=== PATIENT | male | born 1950 | race Caucasian/White ===

== ENCOUNTER 2024-09-22 09:44 | Emergency (ER) | payer MEDICARE, OTHER ==
[~2024-09-22] VITALS: Ht 193 cm; Wt 184.2 kg
[~2024-09-22 09:44] MED LIST: BACDST PO; CEPH500C PO
[2024-09-22 10:21] VITALS: BP 163/88; PULSE 88; RESP 17; TEMP 98.8; O2SAT 96
--- NOTE | 2024-09-22 10:31 | ED.PDOC ---
Musculoskeletal HPI Comments A 73 YEAR OLD MALE PRESENTS TO THE ED WITH COMPLAINT OF LEFT KNEE PAIN. PATIENT STATES HE HAS BEEN EXPERIENCING LEFT KNEE PAIN THAT IS WORSE WITH MOVEMENT FOR THE PAST 2 WEEKS. PATIENT DENIES INJURY TO THE AFFECTED AREA, FEVER, CHILLS, SHORTNESS OF BREATH, CHEST PAIN, ABDOMINAL PAIN, NAUSEA, VOMITING, HEADACHE, OR OTHER COMPLAINTS. NO OTHER SYMPTOMS OR MODIFYING FACTORS AT THIS TIME. PATIENT IS ALERT, ORIENTED X 4, AND HAS STEADY GAIT. Chief Complaint: Lower Extremity Time Seen by MD: 10:02 Primary Care Provider: UNKNOWN Reviewed Notes: Nurses Notes, Medications, Allergies Allergies: Coded Allergies: NO KNOWN ALLERGIES (Unverified , 05/22/23) Home Meds Active Scripts Prednisone (Prednisone) 20 Mg Tab, 60 MG PO DAILY, #21 TAB Prov:ROSSY MARCELINO 09/22/24 Hydrocodone-Acetaminophen (Hydrocodone Bitartrate/AC 10-325 mg) 1 Tab Tab, 1 TAB PO BID, #14 TAB Prov:ROSSY MARCELINO 09/22/24 Sulfamethoxazole W/Trimethopri (Bactrim Ds Tablet) 1 Tab Tb, 1 TAB PO BID for 7 Days, #14 TAB 0 Refills Prov:LEONIDAS VINES THEATER USHER 05/22/23 Cephalexin Monohydrate (Cephalexin) 500 Mg Cap, 500 MG PO QID for 5 Days, #20 CAP 0 Refills Prov:LEONIDAS VINES THEATER USHER 05/22/23 Information Source: Patient Mode of Arrival: Ambulatory Location: Left Extremity Location: Knee Timing: Weeks Prehospital treatment: None Severity: Moderate Able to Move Extremity: Yes Bear Weight: Fully Pain: Moderate Mechanism: No Trauma, Spontaneous Circumstances: Spontaneous Onset of Symptoms: Spontaneous Symptoms: Pain DVT Risk Factors: NONE Last Tetanus: Unknown Associated signs and symptoms: Knee pain Past Medical History PAST MEDICAL HISTORY: Denies Past Medical History (Other): CELLULITIS OF RIGHT LOWER LEG Surgical History (Other): BILATERAL FEMUR SURGERY Family History Family History: Reviewed,noncontributory to illness Social History Smoker: Non-Smoker Alcohol: Denies ETOH Use Drugs: Denies Drug Use Lives In: Home Constitutional: denies: chills, diaphoresis, fatigue, fever, malaise, sweats, weakness, others EENTM: denies: blurred vision, double vision, ear bleeding, ear discharge, ear drainage, ear pain, ear ringing, eye pain, eye redness, hearing loss, mouth pain, mouth swelling, nasal discharge, nose bleeding, nose congestion, nose pain, photophobia, tearing, throat pain, throat swelling, voice changes, others Respiratory: denies: cough, hemoptysis, orthopnea, SOB at rest, shortness of breath, SOB with excertion, stridor, wheezing, others Cardiovascular: denies: chest pain, dizzy spells, diaphoresis, Dyspnea on exertion, edema, irregular heart beat, left arm pain, lightheadedness, palpitations, PND, syncope, others Gastrointestinal: denies: abdomen distended, abdominal pain, blood streaked bowels, constipated, diarrhea, dysphagia, difficulty swallowing, hematemesis, melena, nausea, poor appetite, poor fluid intake, rectal bleeding, rectal pain, vomiting, others Genitourinary: denies: burning, dysuria, flank pain, frequency, hematuria, incontinence, penile discharge, penile sore, pain, testicle pain, testicle swelling, urgency, others Neurological: denies: dizziness, fainting, headache, left sided numbness, left sided weakness, numbness, paresthesia, pre-existing deficit, right sided numbness, right sided weakness, seizure, speech problems, tingling, tremors, weakness, others Musculoskeletal: reports: joint pain, others (LEFT KNEE PAIN); denies: back pain, gout, joint swelling, muscle pain, muscle stiffness, neck pain Integumetry: denies: bruises, change in color, change in hair/nails, dryness, laceration, lesions, lumps, rash, wounds, others Allergic/Immunocompromised: denies: Difficulty Healing, Frequent Infections, Hives, Itching, others Hematologic/Lymphatic: denies: anemia, blood clots, easy bleeding, easy bruising, swollen glands, others Endocrine: denies: excessive hunger, excessive sweating, excessive thirst, excessive urination, flushing, intolerance to cold, intolerance to heat, unexplained weight gain, unexplained weight loss, others Psychiatric: denies: anxiety, bipolar disorder, depression, hopeless, panic disorder, schizophrenia, sleepless, suicidal, others All Other Systems: Reviewed and Negative Physical Exam General Appearance: No Apparent Distress, Obese HEENT: Normal ENT Inspection, PERRL/EOMI, Pharynx Normal, TMs Normal Neck: Full Range of Motion, Non-Tender, Normal, Normal Inspection Respiratory: Chest Non-Tender, Lungs Clear, No Accessory Muscle Use, No Respiratory Distress, Normal Breath Sounds Cardiovascular: No Edema, No JVD, No Murmur, No Gallop, Normal Peripheral Pulses, Regular Rate/Rhythm Breast Exam: Deferred Gastrointestinal: No Organomegaly, Non Tender, No Pulsatile Mass, Normal Bowel Sounds, Soft Genitalia: Deferred Pelvic: Deferred Rectal: Deferred Extremities: Decreased range of motion (slightly), No calf tenderness, Normal capillary refill, No pedal edema, Tender (AND MILD SWELLING ON LEFT KNEE, NO BONY TENDERNESS, SWELLING AND DEFORMITY. NO REDNESS AND SWELLING OF LEFT LOWER LEG, NO DVT SIGNS AND INFECTION SIGNS. ) Musculoskeletal : Apperance: Normal Neurologic: Alert, batteryman II-XII nml as Tested, No Motor Deficits, Normal Affect, Normal Mood, No Sensory Deficits Cerebellar Function: Normal Reflexes: Normal Skin: Dry, Normal Color, Warm Peripheral Pulses: 2+ carotid (R), 2+ carotid (L) Lymphatic: No Adenopathy Was a procedure done? Was a procedure done?: No Differential Diagnosis EXT Differential Diagnosis: Deep Vein Thrombosis, Sprain, DJD, Strain, Arthritis, Bursitis X-Ray, Labs, Meds, VS Vital Signs Date Time Temp Pulse Resp B/P (MAP) Pulse Ox O2 Delivery O2 Flow Rate FiO2 09/22/24 10:21 88 17 96 Room Air 09/22/24 10:21 98.8 88 17 163/88 (113) 96 98.8 09/22/24 09:53 98.8 88 17 163/88 (113) 96 98.8 Current Medications Medications (Trade) Dose Ordered Sig/Maxine Route Start Time Stop Time Status Last Admin Acetaminophen/ Hydrocodone Bitart ([place] 10/325MG Tab) 1 tab ONCE ONCE PO 09/22/24 10:30 09/22/24 10:31 DC 09/22/24 10:34 Left lower extremity venous duplex Clinical History: LEFT KNEE PAIN TO LEFT THIGH Comparison: US RT LOWER DVT on DOS: 05/22/23 Technique: Duplex Doppler evaluation of the deep venous system of the left lower extremity from the common femoral vein to the popliteal vein including color Doppler and spectral/pulsed waveform analysis was performed. Findings: The common femoral vein demonstrates appropriate compressibility and waveform variability. There is compressibility/patency of the great saphenous vein at the proximal thigh. The femoral vein demonstrates appropriate compressibility and waveform variability. The deep femoral vein demonstrates appropriate compressibility and waveform variability. The popliteal vein demonstrates appropriate compressibility and waveform variability. There is normal compressibility at the tibioperoneal trunk. Impression: 1. No left femoropopliteal venous thrombosis. ATED BY: LENARD STOCKTON MD DICTATED DATE/TIME: 09/22/24 1103 SIGNED BY: LENARD STOCKTON MD SIGNED DATE/TIME: 09/22/24 1103 CC: EXAM: XR Left Knee, 3 Views CLINICAL INDICATION: PAIN, NO INJURY TECHNIQUE: Three views of the left knee. COMPARISON: None FINDINGS: BONES/JOINTS: Moderate to severe tricompartment degenerative change of the knee joint. No dislocation. No acute fracture. SOFT TISSUES: Unremarkable. OTHER FINDINGS: . . IMPRESSION: 1. No acute fracture. 2. Degenerative changes as above. ATED BY: CHELSIE MATA MD DICTATED DATE/TIME: 09/22/24 1040 SIGNED BY: CHELSIE MATA MD SIGNED DATE/TIME: 09/22/24 1040 CC: X-Ray, Labs, Meds, VS Comment EXTERNAL MEDICAL RECORDS REVIEWED: [NONE] INDEPENDENT HISTORIANS: [NONE] SOCIAL DETERMINANTS OF HEALTH: [NONE] LABS ORDERED: NONE REVIEWED AND INTERPRETED RESULTS: NONE IMAGING ORDERED: XR KNEE LT, CV VENOUS DOPPLER LOW EXT LT TREATMENTS ORDERED: NORCO 10/325MG PO PROCEDURES PERFORMED: NONE CRITICAL CARE TIME: NONE I HAVE DISCUSSED THE PATIENT WITH THE ATTENDING PHYSICIAN DR. CAM AND HE AGREES WITH THE PATIENT'S PLAN OF CARE AND DISPOSITION. BASED ON HISTORY OF PRESENT ILLNESS, AND PHYSICAL EXAM, PATIENT WILL BE DISCHARGED HOME. DISCUSSED PLAN FOR DISCHARGE HOME WITH RX [NORCO 10/325MG AND PREDNISONE]. MEDICATION WARNINGS GIVEN. SHARED DECISION MAKING: PATIENT INSTRUCTED TO FOLLOW UP WITH PRIMARY CARE PROVIDER IN 1-2 DAYS FOR RE-EVALUATION OF SYMPTOMS. PATIENT VERBALIZES UNDERSTANDING TO RETURN TO ED FOR NEW OR WORSENING SYMPTOMS OR IF FOLLOW UP WITH PCP CANNOT BE OBTAINED. PATIENT FEELS COMFORTABLE GOING HOME AT THIS TIME. ALL QUESTIONS ADDRESSED AT TIME OF DISCHARGE. Images Reviewed?: Images reviewed and evaluated by me Time of 1ST Reevaluation: 11:21 Reevaluation 1ST: Improved Patient Education/Counseling: Diagnosis, Treatment, Need For Follow Up Family Education/Counseling: Diagnosis, Treatment, Need For Follow Up Medical Screening: No EMC Exist At This Time Departure 1 Departure Time of Disposition: 11:30 Impression: Primary Impression: Degenerative joint disease of left knee Qualified Codes: M17.12 - Unilateral primary osteoarthritis, left knee Disposition: HOME / SELF CARE / HOMELESS Condition: Stable Additional Instructions: FOLLOW-UP WITH PCP IN 1 TO 2 DAYS. TAKE MEDICATIONS PRESCRIBED. RETURN TO ED FOR ANY NEW OR WORSENING SYMPTOMS. e-Prescriptions Prednisone (Prednisone) 20 Mg Tab 60 MG PO DAILY, #21 TAB Prov: ROSSY MARCELINO 09/22/24 Hydrocodone-Acetaminophen (Hydrocodone Bitartrate/AC 10-325 mg) 1 Tab Tab 1 TAB PO BID, #14 TAB Prov: ROSSY MARCELINO 09/22/24 Discharged With: Self Critical Care Note Critical Care Time?: No Stability Stability form required: No I personally scribed for ROSSY MARCELINO ([email or web address]) on 09/22/24 at 10:31. Electronically submitted by Krishna Johnson (bubl). I personally scribed for ROSSY MARCELINO ([email or web address]) on 09/22/24 at 11:08. Electronically submitted by Krishna Johnson (bubl). I personally scribed for ROSSY MARCELINO ([email or web address]) on 09/22/24 at 11:15. Electronically submitted by Krishna Johnson (bubl). ROSSY MARCELINO September 22, 2024 10:31
[2024-09-22] MEDS: HYDROcodone-ACET 10/325MG TAB PO ONE (10:34)
--- NOTE | 2024-09-22 10:42 | DVH ---
EXAM: XR Left Knee, 3 Views CLINICAL INDICATION: PAIN, NO INJURY TECHNIQUE: Three views of the left knee. COMPARISON: None FINDINGS: BONES/JOINTS: Moderate to severe tricompartment degenerative change of the knee joint. No dislocat ion. No acute fracture. SOFT TISSUES: Unremarkable. OTHER FINDINGS: . . IMPRESSION: 1. No acute fracture. 2. Degenerative changes as above.
--- NOTE | 2024-09-22 11:06 | DVH ---
Left lower extremity venous duplex Clinical History: LEFT KNEE PAIN TO LEFT THIGH Comparison: US RT LOWER DVT on DOS: 05/22/23 Technique: Duplex Doppler evaluation of the deep venous system of the left lower extremity from the common femor al vein to the popliteal vein including color Doppler and spectral/pulsed waveform analysis was perfo rmed. Findings: The common femoral vein demonstrates appropriate compressibility and waveform variability. There is compressibility/patency of the great saphenous vein at the proximal thigh. The femoral vein demonstrates appropriate compressibility and waveform variability. The deep femoral vein demonstrates appropriate compressibility and waveform variability. The popliteal vein demonstrates appropriate compressibility and waveform variability. There is normal compressibility at the tibioperoneal trunk. Impression: 1. No left femoropopliteal venous thrombosis.
[2024-09-22] MEDS ORDERED: PRED20TA2 PO (11:16)
[2024-09-22] MEDS ORDERED: HYDR-4798 PO (11:16)
== END 2024-09-22 11:33 | disposition home or self-care (01) ==
LOC: ER 09:44
DX: M17.12 Unilateral primary osteoarthritis, left knee (principal); Z98.890 Other specified postprocedural states
CPT/HCPCS: 73562; 93971